=== PATIENT | female | born 1950 | race Two or more races ===

== ENCOUNTER 2023-12-26 11:58 | Inpatient (IN) | payer OTHER, MEDICAID ==
[~2023-12-26] VITALS: Ht 152.4 cm; Wt 52.2 kg
[2023-12-26 12:28] LABS: ABG BASE EXCESS -1.1 mmol/L (-2.0-2.0); ABG OXYGEN SATURATION 59.7 % (92.0-98.5); ABG PCO2 44.7 mmHg (35.0-45.0); ABG PH 7.359 (7.350-7.450); ABG PO2 30.5 mmHg (75.0-100.0); COHb 1.2 % (0.5-1.5); MetHb 0.3 % (0.0-1.5); O2Hb 58.8 % (94.0-97.0); SITE, ABG Other; VENT MODE, BG ROOM AIR
[2023-12-26] MEDS: IV NS 0.9% 1,000 ML BAG IV ONE (12:50)
[2023-12-26 13:07] LABS: BASOPHILS % (AUTO) 0.4 % (0.0-2.0); EOSINOPHILS # (AUTO) 0.1 K/uL (0.0-0.7); EOSINOPHILS % (AUTO) 1.8 % (0.0-6.0); HEMATOCRIT 41 % (33-45); HEMOGLOBIN 13.8 g/dL (11.5-14.8); LYMPHOCYTES # (AUTO) 2.2 K/uL (0.8-4.8); LYMPHOCYTES % (AUTO) 34.1 % (20.0-44.0); MEAN CORPUSCULAR HEMOGLOBIN 29 PG (26.0-33.0); MEAN CORPUSCULAR HGB CONC 33 g/dl (31.0-36.0); MEAN CORPUSCULAR VOLUME 88 fL (82-100); MONOCYTES # (AUTO) 0.3 K/uL (0.1-1.30); MONOCYTES % (AUTO) 5.5 % (2.0-12.0); NEUTROPHILS # (AUTO) 3.7 K/uL (1.8-8.9); NEUTROPHILS % (AUTO) 58.2 % (43.0-81.0); PLATELET COUNT (AUTO) 210 K/uL (150-450); RED CELL DISTRIBUTION WIDTH 13.5 % (11.5-15.0); WHITE BLOOD COUNT (AUTO) 6.3 K/uL (4.3-11.0)
[2023-12-26 13:09] LABS: CALCIUM, SERUM 9.3 mg/dL (8.5-10.1); CARBON DIOXIDE 26 mmol/L (21-32); CHLORIDE 97 mmol/L (98-107); CREATININE 0.6 mg/dL (0.6-1.3); POTASSIUM 3.9 mmol/L (3.5-5.1); SODIUM SERUM 131 mmol/L (136-145); UREA NITROGEN, BLOOD 18 mg/dL (7-18)
[2023-12-26 13:10] LABS: GLUCOSE 458 mg/dL (74-106)
[2023-12-26 13:16] LABS: ALANINE AMINOTRANSFERASE 32 U/L (12-78); ALBUMIN 3.2 g/dL (3.4-5.0); ALKALINE PHOSPHATASE 209 U/L (46-116); ASPARTATE AMINOTRANSFERASE 17 U/L (15-37); BILIRUBIN,DIRECT 0.1 mg/dL (0.0-0.2); BILIRUBIN,TOTAL 0.4 mg/dL (0.2-1.0); TOTAL PROTEIN, SERUM 7.2 g/dL (6.4-8.2)
[2023-12-26] MEDS: INSULIN REGULAR, HUMAN 100 UNIT/ML 10 ML VIAL SQ ONE (16:30)
[2023-12-26] MEDS ORDERED: DEXTROSE 50%-WATER 50 ML DISP.SYRIN IV PRN (18:30)
[2023-12-26] MEDS ORDERED: ACETAMINOPHEN 325 MG TABLET PO PRN (18:30)
[2023-12-26] MEDS ORDERED: ONDANSETRON HCL/PF 4 MG/2 ML VIAL IVP PRN (18:30)
[2023-12-26] MEDS ORDERED: INSULIN REGULAR, HUMAN 100 UNIT/ML 3 ML VIAL SQ PRN (18:30)
[2023-12-26 19:01] VITALS: O2SAT 99
[2023-12-26] MEDS ORDERED: ATOR40TA PO (19:49)
[2023-12-26] MEDS ORDERED: BENA10TA74 PO (19:49)
[2023-12-26] MEDS ORDERED: GLIP10TA21 PO (19:49)
[2023-12-26] MEDS ORDERED: ACET-2030 PO (19:49)
[2023-12-26] MEDS ORDERED: NEOM28OI32 TP (19:49)
[2023-12-26] MEDS ORDERED: MAG30ORA PO (19:49)
[2023-12-26] MEDS ORDERED: DAPA10TA PO (19:49)
[2023-12-26] MEDS ORDERED: INSU100I26 SQ (19:49)
[2023-12-26] MEDS ORDERED: IBUP-2715 PO (19:49)
[2023-12-26] MEDS ORDERED: METF-867 PO (19:49)
[2023-12-26 21:15] VITALS: BP 159/79; TEMP 98.1; O2SAT 98
[2023-12-26] MEDS: IV NS 0.9% 1,000 ML IV PRN (21:38)
[2023-12-26] MEDS: ENOXAPARIN SODIUM 40 MG/0.4 ML DISP.SYRIN SQ SCH (22:40)
[2023-12-26] MEDS: BLOOD SUGAR DIAGNOSTIC 1 EACH STRIP IN SCH (22:42)
[2023-12-26] MEDS: INSULIN REGULAR, HUMAN 100 UNIT/ML 3 ML VIAL SQ PRN (23:50)
[2023-12-27 06:33] LABS: BASOPHILS % (AUTO) 0.5 % (0.0-2.0); EOSINOPHILS # (AUTO) 0.2 K/uL (0.0-0.7); EOSINOPHILS % (AUTO) 3.1 % (0.0-6.0); HEMATOCRIT 40 % (33-45); HEMOGLOBIN 12.9 g/dL (11.5-14.8); LYMPHOCYTES # (AUTO) 2.9 K/uL (0.8-4.8); LYMPHOCYTES % (AUTO) 45.1 % (20.0-44.0); MEAN CORPUSCULAR HEMOGLOBIN 28 PG (26.0-33.0); MEAN CORPUSCULAR HGB CONC 33 g/dl (31.0-36.0); MEAN CORPUSCULAR VOLUME 86 fL (82-100); MONOCYTES # (AUTO) 0.4 K/uL (0.1-1.30); MONOCYTES % (AUTO) 6.2 % (2.0-12.0); NEUTROPHILS # (AUTO) 2.9 K/uL (1.8-8.9); NEUTROPHILS % (AUTO) 45.1 % (43.0-81.0); PLATELET COUNT (AUTO) 208 K/uL (150-450); RED BLOOD CELL COUNT(AUTO) 4.58 MIL/uL (4.0-5.2); RED CELL DISTRIBUTION WIDTH 13.7 % (11.5-15.0); WHITE BLOOD COUNT (AUTO) 6.4 K/uL (4.3-11.0)
[2023-12-27 06:50] LABS: CHOLESTEROL 192 mg/dL (<200); HDL CHOLESTEROL 42 mg/dL (40-60); LDL 121 mg/dL (0-99); TRIGLYCERIDES 196 mg/dL (30-150)
[2023-12-27 06:55] LABS: CARBON DIOXIDE 24 mmol/L (21-32); CHLORIDE 107 mmol/L (98-107); POTASSIUM 3.5 mmol/L (3.5-5.1); SODIUM SERUM 141 mmol/L (136-145)
[2023-12-27 08:00] VITALS: BP 150/81; TEMP 97.3; O2SAT 99
[2023-12-27 08:10] LABS: CALCIUM, SERUM 8.9 mg/dL (8.5-10.1); CREATININE 0.5 mg/dL (0.6-1.3); GLUCOSE 133 mg/dL (74-106); MAGNESIUM 1.9 mg/dL (1.8-2.4); PHOSPHORUS 3.8 mg/dL (2.5-4.9); UREA NITROGEN, BLOOD 20 mg/dL (7-18)
[2023-12-27] MEDS ORDERED: IBUPROFEN 200 MG TABLET PO PRN (10:00)
[2023-12-27] MEDS ORDERED: ACETAMINOPHEN ES 500 MG TABLET PO PRN (10:00)
[2023-12-27 10:21] VITALS: BP 150/81
[2023-12-27] MEDS: BENAZEPRIL HCL 10 MG TABLET PO SCH (10:21)
[2023-12-27] MEDS: INSULIN GLARGINE, 100 UNIT/ML CARTRIDGE SQ SCH (11:21)
[2023-12-27] MEDS ORDERED: ATORVASTATIN 40 MG TABLET PO SCH (22:00)
[2023-12-28] MEDS ORDERED: DAPAGLIFLOZIN PROPANEDIOL 5 MG TABLET PO SCH (09:00)
== END 2023-12-27 16:28 | disposition home or self-care (01) | DRG 638 ==
LOC: ER 12:10 → MED 20:24
PROVIDERS: ADMIT Nurse Practitioner Acute Care; ATTEND Nurse Practitioner Acute Care
DX: E11.65 Type 2 diabetes mellitus with hyperglycemia (principal); E44.1 Mild protein-calorie malnutrition; E11.22 Type 2 diabetes mellitus with diabetic chronic kidney disease; E86.0 Dehydration; R53.1 Weakness; E03.9 Hypothyroidism, unspecified; N18.9 Chronic kidney disease, unspecified; G31.84 Mild cognitive impairment of uncertain or unknown etiology; I12.9 Hypertensive chronic kidney disease with stage 1 through stage 4 chronic kidney disease, or unspecified chronic kidney disease; E78.5 Hyperlipidemia, unspecified; E88.09 Other disorders of plasma-protein metabolism, not elsewhere classified; I16.0 Hypertensive urgency; Z79.4 Long term (current) use of insulin; M89.8X9 Other specified disorders of bone, unspecified site; Z91.199 Patient's noncompliance with other medical treatment and regimen due to unspecified reason; Z68.22 Body mass index [BMI] 22.0-22.9, adult; K59.09 Other constipation; Z79.84 Long term (current) use of oral hypoglycemic drugs
CPT/HCPCS: 36415; 71045-TC; 80048-TC; 80061-TC; 80076-TC; 82010-TC; 82803-TC; 82962-TC; 83735-TC; 84100-TC; 84484-TC; 85025-TC; 97112-TC; 97116-TC; 97530-TC; A4223; G0378; J1650; J1815; J7030